=== PATIENT | male | born 1955 | race Caucasian/White ===

== ENCOUNTER 2022-06-27 09:30 | Inpatient (IN) ==
[2022-06-27] MEDS ORDERED: NS 0.9% 1000 ml BAG 1,000 ML IV ONE (09:34)
[2022-06-27 10:35] LABS: Hematocrit 38 % (42-52); Hemoglobin 12.8 g/dL (14.0-18.0); Mean Corpuscular HGB Conc 34 g/dL (31-36); Mean Corpuscular Hemoglobin 31 pg (27-31); Mean Corpuscular Volume 91 fL (80-94); Mean Platelet Volume 9.2 fL (7.4-10.4); Platelet Count 133 10^3/uL (150-450); Red Blood Count 4.19 10^6 /uL (4.18-5.48); Red Cell Distribution Width 15 % (10-15)
[2022-06-27] MEDS ORDERED: Dexamethasone IV 4 MG/ML VIAL 1 ml VIAL IV SLOW PU ONE (10:37)
[2022-06-27 10:52] LABS: ALT 71 U/L (7-52); Albumin/Globulin Ratio 0.8 (1-3); Alkaline Phosphatase 660 U/L (35-149); Blood Urea Nitrogen 69 mg/dL (6-24); Chloride 107 mmol/L (101-111); Globulin 2.4 g/dL (2-4); Glucose 94 mg/dL (70-100); Sodium 134 mmol/L (135-145); Total Protein 4.4 g/dL (6.4-8.9); eGFR CKD-EPI 26.3 (>60)
[2022-06-27 11:11] LABS: RBC Morphology Normal (Normal)
[2022-06-27 11:12] LABS: ABS Basophils 0.2 10^3/ul (0-0.2); ABS Eosinophils 0.1 10^3/ul (0-0.6); ABS Lymphocytes 0.8 10^3/ul (1.0-4.8); ABS Monocytes 0.4 10^3/ul (0-0.8); ABS Neutrophils 5.6 10^3/ul (1.5-7.7); Eosinophil % 1.1 %; Lymphocyte % 11.1 %; Nucleated Red Blood Cells % 0.1
[2022-06-27 11:18] LABS: CO2 Carbon Dioxide 13 mmol/L (22-32)
[2022-06-27 11:19] LABS: Anion Gap 14 mmol/L (2-11)
[2022-06-27] MEDS ORDERED: NS 0.9% 1000 ml BAG 2,000 ML IV ONE (11:56)
[2022-06-27 12:36] LABS: INR 1.45 (0.89-1.11)
[2022-06-27 12:49] LABS: Magnesium 2.3 mg/dL (1.9-2.7)
[2022-06-27 13:20] LABS: Blood Urea Nitrogen 65 mg/dL (6-24); Calcium 7.2 mg/dL (8.6-10.3); Chloride 111 mmol/L (101-111); Glucose 86 mg/dL (70-100); Sodium 135 mmol/L (135-145); eGFR CKD-EPI 29.4 (>60)
[2022-06-27] MEDS ORDERED: Hydrocortisone INJ 100 MG/2ML 2 ML VIAL IV ONE (13:35)
[2022-06-27 13:47] LABS: Anion Gap 12 mmol/L (2-11); CO2 Carbon Dioxide 12 mmol/L (22-32)
[2022-06-27] MEDS ORDERED: Albumin Human 5% 12.5 GM/250 ML BTL IV ONE (13:55)
[2022-06-27] MEDS ORDERED: DOPamine 800 MG/250 ML IVPREM 800 MG/250 ML ML CENTR SCH (14:00)
[2022-06-27] MEDS ORDERED: fentaNYL 100 mcg/2 ml 50 MCG/ML VIAL IV SLOW PU PRN (14:26)
[2022-06-27] MEDS: Norepinephrine 16MCG/ML BAG NS 4,000 MCG/250 ML BAG IV SCH ×2 (15:43→22:42)
[2022-06-27 16:25] LABS: Urine Appearance Cloudy; Urine Bilirubin 2+ (Negative); Urine Blood 1+ (Negative); Urine Color Amber; Urine Glucose Negative (Negative); Urine Ketones Negative (Negative); Urine Nitrite Negative (Negative); Urine Protein Negative (Negative); Urine Urobilinogen Negative (Negative)
[2022-06-27] MEDS ORDERED: Piperacillin/Tazobac ADVAN 3.375 GM in NS 0.9% 100 ml BAG 100 ML IV ONE (16:28)
[2022-06-27 16:33] LABS: Urine Bacteria Absent (Absent); Urine Red Blood Cell Trace(0-2/hpf) (Absent); Urine Squamous Epithelial Cell Present (Absent); Urine White Blood Cell Trace(0-5/hpf) (Absent)
[2022-06-27 16:35] LABS: Urine Creatinine Concentration 51.46 mg/dL
[2022-06-27 16:39] LABS: TSH Ultra Thyroid Stim Horm 1.77 mcIU/mL (0.34-5.60)
[2022-06-27 16:44] LABS: Activated Partial Thrombo Time 31.9 seconds (26.0-38.0); INR 1.48 (0.89-1.11)
[2022-06-27] MEDS ORDERED: Zosyn per Pharmacy NOTE FOLLOW UP SCH (17:00)
[2022-06-27] MEDS: Heparin 5000 UNITS/ML 1 mL VIAL SUBCUT SCH ×2 (17:05→20:06)
[2022-06-27 20:11] LABS: ABS Lymphocytes 0.5 10^3/ul (1.0-4.8); ABS Monocytes 0.2 10^3/ul (0-0.8); ABS Neutrophils 8.1 10^3/ul (1.5-7.7); Eosinophil % 0.2 %; Hematocrit 43 % (42-52); Hemoglobin 14.3 g/dL (14.0-18.0); Lymphocyte % 5.4 %; Mean Corpuscular HGB Conc 34 g/dL (31-36); Mean Corpuscular Hemoglobin 31 pg (27-31); Mean Corpuscular Volume 92 fL (80-94); Mean Platelet Volume 9.9 fL (7.4-10.4); Nucleated Red Blood Cells % 0.1; Platelet Count 129 10^3/uL (150-450); Red Cell Distribution Width 15 % (10-15); White Blood Count 8.8 10^3/uL (3.5-10.8)
[2022-06-27 20:14] LABS: eGFR CKD-EPI 30.1 (>60)
[2022-06-27] MEDS ORDERED: Famotidine IV 10 MG/ML 2 ml VIAL (20 mg) IV SLOW PU SCH (21:00)
[2022-06-27] MEDS ORDERED: ZOSYN 3.375 GM Q8H per EXTENDED INFUSION IV SCH (21:00)
[2022-06-27 21:58] LABS: Potassium, Whole Blood 3.7 mmol/L (3.4-4.5)
[2022-06-28 03:01] VITALS: BP 101/77
== END 2022-06-28 03:00 | disposition short-term general hospital (02) | DRG 281 ==
LOC: ED 09:30 → EDHOLD 13:53 → ICU 14:19
PROVIDERS: ADMIT Internal Medicine Critical Care Medicine; ATTEND Internal Medicine Critical Care Medicine